=== PATIENT | female | born 2000 | race African-American/Black ===

== ENCOUNTER 2021-01-08 19:44 | Emergency (ER) | payer MEDICAID ==
[~2021-01-08] VITALS: Ht 162.6 cm; Wt 55.0 kg
[2021-01-08] MEDS ORDERED: IBUPROFEN 600MG TABLET PO STA (22:18)
[2021-01-08] MEDS ORDERED: ACETAMINOPHEN 325MG TABLET PO STA (22:18)
[2021-01-08] MEDS ORDERED: IBUP-2028 MT (22:44)
[2021-01-08 23:13] VITALS: BP 113/80
== END 2021-01-08 23:50 | disposition home or self-care (01) ==
LOC: ER 19:44
DX: R06.02 Shortness of breath (principal); F12.10 Cannabis abuse, uncomplicated
CPT/HCPCS: 71045; 99283